=== PATIENT | female | born 1990 | race Caucasian/White ===

== ENCOUNTER 2018-04-28 20:44 | Observation (INO) | payer BC, SELFPAY ==
[2018-04-28 21:37] LABS: Absolute Lymphocytes (CBC) 2.5 K/uL (0.7-4.9); Absolute Monocytes 0.8 K/uL (0.1-1.3); Absolute Neutrophil 7.3 K/uL (1.8-8.0); Basophils % 0.5 % (0-1.3); Eosinophils % 0.4 % (0-4.4); Lymphocytes % 23.7 % (15.3-44.8); MPV 8.8 fL (7.6-11.3); Monocytes % 7.7 % (3.3-12.3); RBC Red Blood Cell Count 4.29 M/uL (3.86-4.86)
[2018-04-28 21:50] LABS: Urine Blood NEGATIVE (NEG); Urine Glucose NEGATIVE (NEG); Urine Protein NEGATIVE (NEG); Urine Specific Gravity 1.025 (1.005-1.030); Urine pH 5.5 (5.0-7.0)
[2018-04-28 21:53] LABS: ALT/SGPT 14 U/L (12-78); AST/SGOT 8 U/L (15-37); Albumin 3.7 g/dL (3.4-5.0); Alkaline Phosphatase 68 U/L (45-117); BUN Blood Urea Nitrogen 11 mg/dL (7-18); Bicarbonate 27 mmol/L (21-32); Bilirubin Direct < 0.1 mg/dL (0-0.2); Bilirubin Total 0.2 mg/dL (0.2-1.0); Glucose Level 117 mg/dL (74-106); Lipase 153 U/L (73-393); Potassium 3.2 mmol/L (3.5-5.1); Protein, Total 7.4 g/dL (6.4-8.2); Sodium Level 141 mmol/L (136-145)
[2018-04-28] MEDS ORDERED: NA CHLORIDE 0.9% 1,000 ML ONE (21:56)
[2018-04-28] MEDS ORDERED: ONDANSETRON 4 MG/2 ML VIAL ONE (21:56)
[2018-04-28 22:16] LABS: Blood Morphology Comment NOTED (NOT SEEN); Platelet Estimate ADEQ; Urine White Blood Cell Casts OK
[2018-04-28 22:51] LABS: Urine Bacteria 20-50 /HPF (<20); Urine Culture Reflex Order REFLEXED; Urine Mucus 3+ /HPF (NONE SEEN); Urine RBC <5 /HPF (NONE SEEN)
--- NOTE | 2018-04-29 00:45 | ER ---
Nurse's Notes [facility] Name: Agnes Sweeney Age: 28 yrs Sex: Female : 1990 Arrival Date: 04/28/2018 Time: 20:46 Bed 8 Private MD: Diagnosis: Acute appendicitis Presentation: 04/28 20:48 Presenting complaint: Patient states: I am having severe abdominal pain on my right ed1 side. Transition of care: patient was not received from another setting of care. Onset of symptoms was April 25, 2018. Risk Assessment: Do you want to hurt yourself or someone else? Patient reports no desire to harm self or others. Initial Sepsis Screen: Does the patient meet any 2 criteria? No. Patient's initial sepsis screen is negative. Does the patient have a suspected source of infection? No. Patient's initial sepsis screen is negative. Care prior to arrival: None. 20:48 Method Of Arrival: Ambulatory ed1 20:48 Acuity: SRI 3 ed1 Triage Assessment: 20:51 General: Appears uncomfortable, Behavior is calm, cooperative. Pain: Complains of pain ed1 in right lower quadrant Pain does not radiate. Pain currently is 6 out of 10 on a pain scale. Quality of pain is described as sharp, Is continuous. GI: Reports lower abdominal pain, nausea, Patient currently denies diarrhea, vomiting. : Reports burning with urination. 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 It has been more than one year since last vaccine. - Social history:: Smoking status: Patient/guardian denies using tobacco. - Ebola Screening: : Patient negative for fever greater than or equal to 101.5 degrees Fahrenheit, and additional compatible Ebola Virus Disease symptoms Patient denies exposure to infectious person Patient denies travel to an Ebola-affected area in the 21 days before illness onset No symptoms or risks identified at this time. Screenin:04 Abuse screen: Denies threats or abuse. Nutritional screening: No deficits noted. tl2 Tuberculosis screening: No symptoms or risk factors identified. Fall Risk None identified. Assessment: 21:50 General: Appears in no apparent distress. uncomfortable, Behavior is cooperative, tl2 appropriate for age, anxious. Pain: Complains of pain in right lower quadrant. Neuro: Level of Consciousness is awake, alert, obeys commands, Oriented to person, place, time, situation. Cardiovascular: Denies chest pain. Respiratory: Airway is patent Respiratory effort is even, unlabored, Respiratory pattern is regular, symmetrical. GI: Bowel sounds present X 4 quads. Abd is soft Abdomen is tender to palpation in left upper quadrant. : No signs and/or symptoms were reported regarding the genitourinary system. Derm: Skin is pale. 23:04 Reassessment: Patient appears in no apparent distress at this time. Patient and/or tl2 family updated on plan of care and expected duration. Pain level reassessed. Patient is alert, oriented x 3, equal unlabored respirations, skin warm/dry/pink. Patient states feeling better. 04/29 00:03 Reassessment: Patient appears in no apparent distress at this time. pt back from CT, tl2 ambulatory to restroom. Awaiting results. 01:00 Reassessment: Patient appears in no apparent distress at this time. Patient and/or tl2 family updated on plan of care and expected duration. Pain level reassessed. Patient is alert, oriented x 3, equal unlabored respirations, skin warm/dry/pink. 02:00 Reassessment: Patient appears in no apparent distress at this time. Patient and/or tl2 family updated on plan of care and expected duration. Pain level reassessed. Patient is alert, oriented x 3, equal unlabored respirations, skin warm/dry/pink. Patient states feeling better. 03:00 Reassessment: Patient appears in no apparent distress at this time. Patient and/or tl2 family updated on plan of care and expected duration. Pain level reassessed. Patient is alert, oriented x 3, equal unlabored respirations, skin warm/dry/pink. Vital Signs: 04/28 20:51 BP 133 / 74; Pulse 88; Resp 20; Temp 99.3(O); Pulse Ox 100% on R/A; Weight 104.33 kg ed1 (R); Height 5 ft. 4 in. (162.56 cm); Pain 6/10; 22:04 BP 102 / 60; Pulse 65; Resp 18; Pulse Ox 100% on R/A; tl2 23:04 BP 111 / 53; Pulse 79; Resp 18; Pulse Ox 99% on R/A; tl2 04/29 01:52 BP 121 / 82; Pulse 63; Resp 18; Pulse Ox 98% on R/A; mt 02:34 BP 112 / 65; Pulse 63; Resp 18; Pulse Ox 99% on R/A; tl2 04/28 20:51 Body Mass Index 39.48 (104.33 kg, 162.56 cm) ed1 ED Course: 04/28 20:46 Patient arrived in ED. as 20:49 Triage completed. ed1 20:51 Arm band placed on right wrist. ed1 20:53 Abel Pope PA is PHCP. cp 20:53 Calvin Mahmood MD is Attending Physician. cp 21:16 Kayleigh Maldonado, DEBRA is Primary Nurse. tl2 21:17 Oral contrast given. vm2 21:29 Inserted saline lock: 20 gauge in right antecubital area, using aseptic technique. mt 21:59 IV discontinued, intact, bleeding controlled, No redness/swelling at site. Pressure mt dressing applied. Inserted saline lock: 22 gauge in right antecubital area, using aseptic technique. 22:05 Patient has correct armband on for positive identification. Bed in low position. Call tl2 light in reach. Side rails up X 1. Adult w/ patient. 23:[address] via wheelchair. kw1 23:48 CT completed. Patient tolerated procedure well. Patient moved back from CT. kw1 04/29 00:44 Angel Martinez MD is Hospitalizing Provider. cp 03:00 No provider procedures requiring assistance completed. tl2 03:12 Patient admitted, IV remains in place. tl2 Administered Medications: 04/28 22:03 Drug: Zofran 4 mg Route: IVP; Site: right antecubital; tl2 22:03 Drug: NS 0.9% 1000 ml Route: IV; Rate: 1 bolus; Site: right antecubital; tl2 04/29 01:44 Drug: Mefoxin 1 grams Route: IVPB; Infused Over: 30 mins; Site: right antecubital; tl2 02:40 Follow up: IV Status: Completed infusion tl2 01:45 Drug: Flagyl 500 mg Volume: 100 ml; Route: IVPB; Rate: 200 ml/hr; Infused Over: 30 tl2 mins; Site: right antecubital; 02:40 Follow up: IV Status: Completed infusion; IV Intake: 100ml tl2 01:45 Drug: NS 0.9% 1000 ml Route: IV; Rate: 125 ml/hr; Site: right antecubital; tl2 03:13 Follow up: IV Status: Infusion continued upon admission tl2 01:45 Drug: morphine 4 mg Route: IVP; Site: right antecubital; tl2 02:40 Follow up: Response: No adverse reaction; Pain is decreased tl2 01:46 Drug: Zofran 4 mg Route: IVP; Site: right antecubital; tl2 02:40 Follow up: Response: No adverse reaction; Pain is decreased tl2 02:39 Drug: Potassium Chloride 20 mEq Route: IV; Rate: calculated rate; Site: right tl2 antecubital; 03:12 Follow up: IV Status: Infusion continued upon admission tl2 Intake: 02:40 IV: 100ml; Total: 100ml. tl2 Outcome: 00:44 Decision to Hospitalize by Provider. cp 03:00 Admitted to Med/surg accompanied by tech, family with patient, via wheelchair, room tl2 224, with chart, Report called to DEBRA Carroll 03:00 Condition: stable 03:00 Discharge instructions given to patient, family, Instructed on the need for admit. 03:13 Patient left the ED. tl2 Signatures: Bella Luna Erika RN RN ed1 Abel Pope PA PA cp Knox, Taylor, RN RN tl2 Katie Tovar 2 Sendy Henry mt, Kimberly kw
--- NOTE | 2018-04-29 00:45 | EDPHYS ---
Physician Documentation [facility] Name: Agnes Sweeney Age: 28 yrs Sex: Female : 1990 Arrival Date: 04/28/2018 Time: 20:46 Bed 8 Private MD: ED Physician Calvin Mahmood HPI: 04/28 21:10 This 28 yrs old Female presents to ER via Ambulatory with complaints of cp Abdominal Pain. 21:10 The patient presents with abdominal pain right lower quadrant. Onset: The cp symptoms/episode began/occurred 3 day(s) ago. The symptoms do not radiate. Associated signs and symptoms: Pertinent positives: diarrhea, nausea, Pertinent negatives: blood in stools, constipation, fever, vomiting. The symptoms are described as constant. Modifying factors: the symptoms are aggravated by movement. Severity of pain: in the emergency department the pain is actually worse moderately. 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 It has been more than one year since last vaccine. - Social history:: Smoking status: Patient/guardian denies using tobacco. - Ebola Screening: : Patient negative for fever greater than or equal to 101.5 degrees Fahrenheit, and additional compatible Ebola Virus Disease symptoms Patient denies exposure to infectious person Patient denies travel to an Ebola-affected area in the 21 days before illness onset No symptoms or risks identified at this time. ROS: 21:15 Constitutional: Negative for body aches, chills, fever, poor PO intake. cp 21:15 Eyes: Negative for injury, pain, redness, and discharge. cp 21:15 ENT: Negative for drainage from ear(s), ear pain, sore throat, difficulty swallowing, difficulty handling secretions. 21:15 Cardiovascular: Negative for chest pain. 21:15 Respiratory: Negative for cough, shortness of breath, wheezing. 21:15 Abdomen/GI: Positive for abdominal pain, nausea, diarrhea, Negative for vomiting, constipation, black/tarry stool, rectal bleeding. 21:15 Back: Negative for radiated pain. 21:15 : Negative for urinary symptoms, vaginal bleeding, vaginal discharge. 21:15 Skin: Negative for cellulitis, rash. 21:15 All other systems are negative. Exam: 21:20 Constitutional: The patient appears in no acute distress, alert, awake, non-toxic, well cp developed, well nourished, uncomfortable. 21:20 Head/Face: Normocephalic, atraumatic. cp 21:20 Eyes: Periorbital structures: appear normal, Conjunctiva: normal, no exudate, no cp injection, Sclera: no appreciated abnormality, Lids and lashes: appear normal, bilaterally. 21:20 ENT: External ear(s): are unremarkable, Nose: is normal, Mouth: Lips: moist, Oral cp mucosa: moist, Posterior pharynx: is normal, airway is patent, no erythema, no exudate. 21:20 Neck: ROM/movement: is normal, is supple, without pain, no range of motions limitations. 21:20 Chest/axilla: Inspection: normal, Palpation: is normal, no crepitus, no tenderness. 21:20 Cardiovascular: Rate: normal, Rhythm: regular. 21:20 Respiratory: the patient does not display signs of respiratory distress, Respirations: normal, no use of accessory muscles, no retractions, no splinting, no tachypnea, Breath sounds: are clear throughout, no decreased breath sounds, no stridor, no wheezing. 21:20 Abdomen/GI: Inspection: abdomen appears normal, Bowel sounds: active, all quadrants, Palpation: soft, in all quadrants, moderate abdominal tenderness, in the right lower quadrant, rebound tenderness, is not appreciated, voluntary guarding, is elicited in the right lower quadrant. 21:20 Back: pain, is absent, ROM is normal. 21:20 Skin: cellulitis, is not appreciated, no rash present. Vital Signs: 20:51 BP 133 / 74; Pulse 88; Resp 20; Temp 99.3(O); Pulse Ox 100% on R/A; Weight 104.33 kg ed1 (R); Height 5 ft. 4 in. (162.56 cm); Pain 6/10; 22:04 BP 102 / 60; Pulse 65; Resp 18; Pulse Ox 100% on R/A; tl2 23:04 BP 111 / 53; Pulse 79; Resp 18; Pulse Ox 99% on R/A; tl2 04/29 01:52 BP 121 / 82; Pulse 63; Resp 18; Pulse Ox 98% on R/A; mt 02:34 BP 112 / 65; Pulse 63; Resp 18; Pulse Ox 99% on R/A; tl2 04/28 20:51 Body Mass Index 39.48 (104.33 kg, 162.56 cm) ed1 MDM: 04/28 20:53 Patient medically screened. cp 21:30 Differential diagnosis: appendicitis, cholecystitis, Cholelithiasis, Ectopic , cp Ovarian Torsion, Pelvic Inflammatory Disease, Pyelonephritis, Ureterolithiasis, urinary tract infection. 04/29 00:40 Data reviewed: vital signs, nurses notes, lab test result(s), radiologic studies, CT cp scan, and as a result, I will admit patient. 00:40 Counseling: I had a detailed discussion with the patient and/or guardian regarding: the cp historical points, exam findings, and any diagnostic results supporting the discharge/admit diagnosis, radiology results, the need for further work-up and treatment in the hospital. 00:43 Physician consultation: Angel Martinez MD was called at 00:43, was contacted at 00:43, regarding admission, to the medical/surgical unit. patient's condition. 04/28 20:54 Order name: Urine Microscopic Only 04/28 21:02 Order name: Urine Dipstick--Ancillary (enter results) mw2 04/28 21:12 Order name: Basic Metabolic Panel cp 04/28 21:12 Order name: CBC with Diff cp 04/28 21:12 Order name: Creatinine for Radiology 04/28 21:12 Order name: Hepatic Function 04/28 21:12 Order name: Lipase cp 04/28 21:38 Order name: CBC with Automated Diff; Complete Time: 00:24 EDDC 04/28 21:57 Interpretation: Normal except: HGB 9.7; HCT 30.0; MCV 69.9; MCH 22.6; RDW 16.7. cp 04/28 21:50 Order name: Creatinine (Radiology Only); Complete Time: 21:57 EDMS 04/28 21:51 Order name: Urine Dipstick-Ancillary EDMS 04/28 21:57 Interpretation: Normal except: UESTR TRACE. cp 04/28 21:53 Order name: Basic Metabolic Panel; Complete Time: 21:57 EDMS 04/28 21:58 Interpretation: Normal except: K 3.2; CL 108; GLUC 117; CA 8.2. cp 04/28 21:53 Order name: Liver (Hepatic) Function; Complete Time: 21:57 EDMS 04/28 21:53 Order name: Lipase; Complete Time: 21:57 EDMS 04/28 22:16 Order name: CBC Smear Scan; Complete Time: 00:24 EDMS 04/28 20:54 Order name: Urine Dipstick-Ancillary (obtain specimen); Complete Time: 21:01 cp 04/28 20:54 Order name: Urine Test (obtain specimen); Complete Time: 20:57 cp 04/28 21:12 Order name: IV Saline Lock; Complete Time: 21:28 cp 04/28 21:12 Order name: Labs collected and sent; Complete Time: 21:28 cp 04/28 21:13 Order name: CT Abd/Pelvis - W/Contrast cp 04/28 22:52 Order name: Urine Microscopic Only; Complete Time: 00:24 EDMS 04/29 00:25 Order name: NPO; Complete Time: 00:27 cp Administered Medications: 04/28 22:03 Drug: Zofran 4 mg Route: IVP; Site: right antecubital; tl2 22:03 Drug: NS 0.9% 1000 ml Route: IV; Rate: 1 bolus; Site: right antecubital; tl2 04/29 01:44 Drug: Mefoxin 1 grams Route: IVPB; Infused Over: 30 mins; Site: right antecubital; tl2 02:40 Follow up: IV Status: Completed infusion tl2 01:45 Drug: Flagyl 500 mg Volume: 100 ml; Route: IVPB; Rate: 200 ml/hr; Infused Over: 30 tl2 mins; Site: right antecubital; 02:40 Follow up: IV Status: Completed infusion; IV Intake: 100ml tl2 01:45 Drug: NS 0.9% 1000 ml Route: IV; Rate: 125 ml/hr; Site: right antecubital; tl2 03:13 Follow up: IV Status: Infusion continued upon admission tl2 01:45 Drug: morphine 4 mg Route: IVP; Site: right antecubital; tl2 02:40 Follow up: Response: No adverse reaction; Pain is decreased tl2 01:46 Drug: Zofran 4 mg Route: IVP; Site: right antecubital; tl2 02:40 Follow up: Response: No adverse reaction; Pain is decreased tl2 02:39 Drug: Potassium Chloride 20 mEq Route: IV; Rate: calculated rate; Site: right tl2 antecubital; 03:12 Follow up: IV Status: Infusion continued upon admission tl2 Disposition: 03:46 Co-signature as Attending Physician, Calvin Mahmood MD. Disposition: 04/29/18 00:44 Hospitalization ordered by Angel Martinez for Observation. Preliminary diagnosis is Acute appendicitis. - Bed requested for Telemetry/MedSurg (observation). - Status is Observation. tl2 - Condition is Stable. - Problem is new. - Symptoms have improved. UTI on Admission? No Signatures: Dispatcher [employer] EDMS Rupal Mccord RN RN Grecia Vergara RN RN ed1 Abel Pope PA PA cp Knox, Taylor, RN RN tl2 Calvin Mahmood MD MD Corrections: (The following items were deleted from the chart) 04/28 21:58 21:57 Normal except: K 3.2; CL 108; GLUC 117. cp cp 04/29 02:18 00:44 Hospitalization Ordered by Angel Martinez MD for Observation. Preliminary diagnosis kl is Acute appendicitis. Bed requested for Telemetry/MedSurg (observation). Status is Observation. Condition is Stable. Problem is new. Symptoms have improved. UTI on Admission? No. cp 03:13 02:18 04/29/2018 00:44 Hospitalization Ordered by Angel Martinez MD for Observation. tl2 Preliminary diagnosis is Acute appendicitis. Bed requested for Telemetry/MedSurg (observation). Status is Observation. Condition is Stable. Problem is new. Symptoms have improved. UTI on Admission? No. kl
[2018-04-29] MEDS ORDERED: METRONIDAZOLE 500mg IVPB 500 MG/100 ML BAG IV ONE (01:17)
[2018-04-29] MEDS ORDERED: CEFOXITIN/SWI 1gm 1 GM/10 ML SYR ONE (01:17)
[2018-04-29] MEDS ORDERED: KCL 20 MEQ/100 mL IVPB 20 MEQ/100 ML BAG IV ONE (01:17)
[2018-04-29] MEDS ORDERED: NA CHLORIDE 0.9% 1,000 ML ONE (01:17)
[2018-04-29] MEDS ORDERED: MORPHINE 4 MG/ML SYR ONE (01:17)
[2018-04-29] MEDS ORDERED: ONDANSETRON 4 MG/2 ML VIAL ONE (01:18)
[2018-04-29] MEDS ORDERED: MORPHINE 4 MG/ML SYR IV PRN (01:40)
[2018-04-29] MEDS ORDERED: ACETAMINOPHEN 500 MG TAB PO PRN (01:40)
[2018-04-29] MEDS ORDERED: ONDANSETRON 4 MG/2 ML VIAL IV PRN ×2 (01:40→11:21)
[2018-04-29] MEDS: D5 0.45 NS 1,000 ML IV SCH ×3 (02:00→17:25)
[2018-04-29 04:05] VITALS: BMI 39.3
[2018-04-29] MEDS ORDERED: CEFOXITIN SODIUM 1 GM/VIAL IVPB SCH (06:00)
[2018-04-29] MEDS: METRONIDAZOLE 500mg IVPB 500 MG/100 ML BAG IV SCH ×4 (06:00→23:26)
[2018-04-29] MEDS: CEFOXITIN/SWI 1gm 1 GM/10 ML SYR IV SCH ×4 (07:30→23:26)
[2018-04-29] MEDS ORDERED: Ringers Lactate 1,000 ML IV ONE (08:40)
--- NOTE | 2018-04-29 09:06 | PREOPCON ---
Date of Consultation: 04/29/2018 Reason: Abdominal pain. History Of Present Illness: The patient is a 28-year-old female, who came to the emergency room with right lower quadrant abdominal pain that started about 3 days ago associated with nausea, occasional vomiting, and diarrhea. No constipation. No blood in her stool. No dysuria or hematuria. No sore throat, runny nose, cough, headaches, or dizziness. Slight anorexia. No fever or chills. Review of Systems: Otherwise unremarkable. Past Medical History: Anxiety and depression. Past Surgical History: Gastric sleeve. Allergies: INCLUDE LATEX, IBUPROFEN, AND TRAMADOL. Social History: The patient does not smoke. Denies drinking. Physical Examination: Vital Signs: Stable. She is afebrile. General: She is awake, alert, and oriented x3. Head and Neck: Cranial nerves 2 through 12 are grossly within normal limits. No neck masses. No JV D. Throat clear. Neck is supple. Chest: Clear. Heart: S1, S2. Abdomen: Soft and nondistended. Positive bowel sounds. Positive right lower quadrant tenderness wi th rebound. No rigidity or guarding. Extremity: Adequately perfused. Nontender. Neuro: Nonfocal. Laboratory Data: White count is 10.8, H and H are 9.7 and 30, platelets are 292. Chemistry reviewed ; potassium is slightly low at 3.2. CT of the abdomen and pelvis reviewed, consistent with acute unc omplicated appendicitis. Assessment: Acute appendicitis. Plan: Admit n.p.o., IV fluid, IV antibiotic, to the OR for laparoscopic appendectomy, possible open. The patient understands the risks, benefits, and alternatives, and agrees to procedure. /MODL Voice ID: [id number] Report ID: [id number]
[2018-04-29] MEDS ORDERED: SUCCINYLCHOLINE 20 MG/ML (10 ML) IV ONE (09:10)
[2018-04-29] MEDS ORDERED: FENTANYL CITR 100 MCG/2 ML ONE (09:12)
[2018-04-29] MEDS ORDERED: PROPOFOL 200 MG/20 ML VIAL IV ONE (09:13)
[2018-04-29] MEDS ORDERED: ROCURONIUM 50 MG/5 ML VIAL IV ONE (09:13)
[2018-04-29] MEDS ORDERED: MIDAZOLAM HCL 2 MG/2 ML INJ ONE (09:13)
[2018-04-29] MEDS ORDERED: BUPIVACAINE 0.5% PF 10 ML VIAL ONE (09:15)
[2018-04-29] MEDS ORDERED: NEOSTIGMINE 1 MG/ML -10 ML VIAL ONE (10:16)
[2018-04-29] MEDS ORDERED: GLYCOPYRROLATE 0.2 MG/ML SYR ONE (10:16)
--- NOTE | 2018-04-29 10:17 | P.OP ---
Preoperative diagnosis: Acute Appendicitis Postoperative diagnosis: same Primary procedure: Lap Appy Anesthesia: gen Estimated blood loss: min Specimen: appy Findings: as above Complications: None Transferred to: Recovery Room Condition: Good
[2018-04-29] MEDS: MEPERIDINE HCL 25 MG/0.5 ML ONE ×4 (10:32→11:14)
[2018-04-29] MEDS ORDERED: KETOROLAC 30 MG/ML INJ ONE (11:05)
[2018-04-29] MEDS: HYDROMORPHONE HCL 1 MG/ML INJ IV PRN ×3 (12:08→22:21)
--- NOTE | 2018-04-29 13:05 | OP ---
Date of Procedure: 04/29/2018 Surgeon: Angel Martinez MD Preoperative Diagnosis: Acute appendicitis. Postoperative Diagnosis: Acute appendicitis. Procedure: Laparoscopic appendectomy. Estimated Blood Loss: Minimal. Specimen: Appendix. Findings: As above. Anesthesia: General. Complications: None. Disposition: The patient tolerated the procedure in stable condition and taken to the Recovery in go od general condition. Procedure In Detail: The patient was brought to the OR and placed in supine position. General anest hesia was begun. The patient was prepped and draped in usual sterile fashion. Marcaine 0.5% was inf iltrated locally. A 15-blade was used to make a 1 cm supraumbilical midline incision. Subcutaneous tissues were divided. The fascia was identified and divided. A #1 Vicryl stay suture was placed. P eritoneal cavity was entered with blunt dissection. A 12-mm trocar placed into the peritoneal cavity under direct vision. Pneumoperitoneum was established. Then, two 5-mm trocars placed, 1 in the sup rapubic region, 1 in the left lower quadrant. Laparoscopy revealed acute appendicitis, uncomplicated . Subsequently, base of the appendix and the cecum identified, mesoappendix identified, and both str uctures divided with the endovascular HERB and then bleeding noted from the appendiceal artery. Vascu lar clips used to control that. Appendix retrieved through the umbilicus via an EndoCatch bag. The right lower quadrant, pelvis, right pericolic gutter thoroughly irrigated. Effluent was clear. No e vidence of bowel injury or bleeding noted. Subsequently, all trocars were removed under direct visio n. Stay sutures were tied to each other to reapproximate the fascial defect. Subcutaneous wounds ir rigated. Bleeding controlled with cautery. A 3-0 chromic used to approximate the subcutaneous tissu e, and jeanie used to close the skin. Sterile dressing was applied. The patient was awakened and t aken to Recovery in good general condition. /MODL Voice ID: [id number] Report ID: [id number]
--- NOTE | 2018-04-29 13:05 | DS ---
LAY/NITISH Voice ID: [id number] Report ID: [id number] MTDClaudette
[2018-04-29] MEDS: HYDROCODONE/APAP 7.5/325 MG TAB PO PRN ×2 (17:22→22:29)
[2018-04-30 04:23] LABS: Absolute Lymphocytes (CBC) 2.7 K/uL (0.7-4.9); Absolute Monocytes 0.7 K/uL (0.1-1.3); Basophils % 0.6 % (0-1.3); Hematocrit 29.4 % (36.0-45.0); Lymphocytes % 31.9 % (15.3-44.8); Monocytes % 8.3 % (3.3-12.3)
[2018-04-30 05:04] LABS: BUN Blood Urea Nitrogen 7 mg/dL (7-18); Bicarbonate 25 mmol/L (21-32); Glucose Level 109 mg/dL (74-106); Phosphorus 3.2 mg/dL (2.5-4.9); Potassium 3.8 mmol/L (3.5-5.1); Sodium Level 141 mmol/L (136-145)
[2018-04-30] MEDS: D5 0.45 NS 1,000 ML IV SCH ×2 (05:23→10:00)
[2018-04-30] MEDS: CEFOXITIN/SWI 1gm 1 GM/10 ML SYR IV SCH (05:23)
[2018-04-30] MEDS: METRONIDAZOLE 500mg IVPB 500 MG/100 ML BAG IV SCH (05:23)
[2018-04-30] MEDS: HYDROCODONE/APAP 7.5/325 MG TAB PO PRN (08:18)
[2018-04-30 08:57] VITALS: BP 105/51; TEMP 98.2
[2018-04-30 09:18] VITALS: O2SAT 97
--- NOTE | 2018-05-01 04:14 | DS ---
Date of Discharge: 04/30/2018 Admitting Diagnosis: Acute appendicitis. Discharge Diagnosis: Acute appendicitis. Procedure Performed: Laparoscopic appendectomy. Hospital Course: The patient is a 28-year-old female who came with abdominal pain, workup revealed a cute appendicitis, underwent a laparoscopic appendectomy. Postoperatively, she is tolerating diet, a mbulating, pain controlled with p.o. pain medication, afebrile. White count is normal. H and H are stable. Therefore, the patient will be discharged to home. Disposition: Home. Condition: Stable. Discharge Instructions: Resume home medications and diet. Activity as tolerated. No heavy lifting. Remove outer dressing in a.m. Shower. Keep wound clean and dry. Follow up in my office in 1 week . Call for appointment. Tylenol No. 3 one tablet p.o. q.4 p.r.n. pain, Cipro 500 mg p.o. q.12, Flag yl 500 mg p.o. q.8. /MODL Voice ID: [id number] Report ID: [id number]
--- NOTE | 2018-05-01 09:50 | RAD REPORT ---
EXAM DESCRIPTION: CT Abdomen and Pelvis With Intravenous Contrast CLINICAL HISTORY: The patient is 28 years old and is Female; RLQ abdomen pain TECHNIQUE: Axial computed tomography images of the abdomen and pelvis with intravenous contrast. S agittal and coronal reformatted images were created and reviewed. This CT exam was performed using one or more of the following dose reduction techniques: automated exposure control, adjustment of t he mA and/or kV according to patient size, and/or use of iterative reconstruction technique. COMPARISON: None. FINDINGS: LUNG BASES: Lung bases are clear. ABDOMEN: LIVER: Hepatic steatosis. GALLBLADDER AND BILE DUCTS: Unremarkable. No calcified stones. No ductal dilation. PANCREAS: Unremarkable. No mass. No ductal dilation. SPLEEN: Unremarkable. No splenomegaly. ADRENALS: Unremarkable. No mass. KIDNEYS AND URETERS: Unremarkable. No solid mass. No hydronephrosis. STOMACH AND BOWEL: Prior gastric sleeve. Enteric contrast is seen throughout the distal small bowel and proximal large bowel. No mucosal thickening. PELVIS: APPENDIX: Diffuse thickening of the appendix measuring 1 cm with periappendiceal stranding and pro minent right lower quadrant lymph nodes. No perforation or fluid collection. BLADDER: Unremarkable. No mass. REPRODUCTIVE: Physiologic pelvic changes with small amount of endometrial fluid and left ovarian c ystic changes measuring 2.8 cm. ABDOMEN and PELVIS: INTRAPERITONEAL SPACE: Unremarkable. No free air. No significant fluid collection. BONES/JOINTS: No acute fracture. No dislocation. SOFT TISSUES: Small fat-containing periumbilical hernia. VASCULATURE: Unremarkable. No abdominal aortic aneurysm. LYMPH NODES: See above. IMPRESSION: 1. Acute uncomplicated appendicitis 2. Physiologic pelvic changes with 2.8 cm left ovarian cyst.. No follow-up imaging is recommended. Reference: US recommendations based on Radiology 2010 Nov;256(3):943-54; CT/MR recommendations based on J Am Krysten Radiol 2013;10:675-681. Electronically signed by: Marco Mejia DO 04/29/2018 12:15 AM [employer] ANIMAL DAMAGE CONTROL AGENT Due to temporary technical issues with the PACS/Fluency reporting system, reports are being signed by the in house radiologist as a courtesy to ensure prompt reporting. The interpreting radiologist is f justoly responsible for the content of the report. ADDENDUM #1 ADDENDUM: THIS REPORT CONTAINS FINDINGS THAT MAY BE CRITICAL TO PATIENT'S CARE: Notification that physician was unable to speak on the phone on 04/29/2018 12: 23 AM N[employer]ISANCE [employer]IMAL DAMAGE CONTROL AGENT. Findings wer e verbally discussed by Dr. Mejia via telephone with nurse Abel vera RN on 04/29/2018 12:23 AM NUISANCE ANIMAL DAMAGE CONTROL AGENT who agreed to take the results on behalf of the physician, and acknowledged their critical nature. Electronically signed by: Marco Mejia DO 04/29/2018 12:24 AM N[employer]ISANCE [employer]IMAL DAMAGE CONTROL AGENT End of Addendum Due to temporary technical issues with the PACS/Fluency reporting system, reports are being signed by the in house radiologist as a courtesy to ensure prompt reporting. The interpreting radiologist is f ully responsible for the content of the report.
== END 2018-04-30 11:00 | disposition home or self-care (01) ==
LOC: ER 20:44 → ERHOLD 04-29 01:54 → 2ND 04-29 02:39
PROVIDERS: ADMIT Surgery; ATTEND Surgery
PROC: 0DTJ4ZZ Resection of Appendix, Percutaneous Endoscopic Approach (ICD-10-PCS; principal; 2018-04-29 09:00)
DX: K35.80 Unspecified acute appendicitis (principal); Z91.040 Latex allergy status; Z98.84 Bariatric surgery status
CPT/HCPCS: 36415; 74177; 80048; 80076; 81003; 81015; 81025; 83690; 83735; 84100; 85025; 87086; 87088; 88304; 96365; 96367; 96375; 99285; G0378; J0330; J0694; J1170; J2175; J2250; J2405; J2704; J2710; J3010; J7030; Q9967

== ENCOUNTER 2019-05-12 12:40 | Emergency (ER) | payer BC, SELFPAY ==
[2019-05-12] MEDS ORDERED: HYDROCODONE/APAP 10/325 TAB ONE (13:03)
--- NOTE | 2019-05-12 13:38 | RAD REPORT ---
EXAM DESCRIPTION: RAD - Tib Fib Right - 05/12/2019 1:32 pm CLINICAL HISTORY: Right leg pain FINDINGS: No fracture is seen
--- NOTE | 2019-05-12 13:41 | ER ---
Nurse's Notes [facility] Name: Agnes Sweeney Age: 29 yrs Sex: Female : 1990 Arrival Date: 05/12/2019 Time: 12:43 Bed 6 Private MD: Diagnosis: Contusion of right lower leg;Abrasion, right ankle;Abrasion, right lower leg Presentation: 05/11 12:44 Chief complaint: Patient states: "I stepped into a manhole and hurt my right leg". Pt aa5 c/o pain to right lower leg. 12:44 Coronavirus screen: The patient has NOT traveled to a country currently being monitored aa5 by the [facility] within the last 14 days. Ebola Screen: Patient negative for fever greater than or equal to 101.5 degrees Fahrenheit, and additional compatible Ebola Virus Disease symptoms. Initial Sepsis Screen: Does the patient meet any 2 criteria? No. Patient's initial sepsis screen is negative. Does the patient have a suspected source of infection? No. Patient's initial sepsis screen is negative. Risk Assessment: Do you want to hurt yourself or someone else? Patient reports no desire to harm self or others. 12:44 Method Of Arrival: Wheelchair aa5 12:44 Acuity: SRI 4 aa5 Triage Assessment: 12:50 General: Appears in no apparent distress. comfortable, Behavior is cooperative, bp appropriate for age, anxious. Pain: Complains of pain in right leg. EENT: No deficits noted. Neuro: No deficits noted. Cardiovascular: No deficits noted. Respiratory: No deficits noted. GI: No signs and/or symptoms were reported involving the gastrointestinal system. : No signs and/or symptoms were reported regarding the genitourinary system. Derm: No deficits noted. Musculoskeletal: Circulation, motion, and sensation intact. Range of motion: intact in all extremities. Injury Description: Abrasion sustained to right leg. Historical: - Allergies: 12:50 Ibuprofen; aa5 12:50 Latex, Natural Rubber; aa5 12:50 Tramadol HCl; aa5 - PMHx: 12:50 Anxiety; Depression; aa5 - PSHx: 12:50 Gastric Sleeve; aa5 - Immunization history:: Last tetanus immunization: < 5 years ago. - Social history:: Smoking status: Patient denies any tobacco usage or history of. Screenin:50 Abuse screen: Denies threats or abuse. Denies injuries from another. Nutritional bp screening: No deficits noted. Tuberculosis screening: No symptoms or risk factors identified. Fall Risk None identified. Assessment: 12:50 General: SEE TRIAGE NOTE. bp 14:21 Reassessment: Patient appears in no apparent distress at this time. Patient and/or rb1 family updated on plan of care and expected duration. Pain level reassessed. Patient is alert, oriented x 3, equal unlabored respirations, skin warm/dry/pink. Vital Signs: 12:44 BP 141 / 90; Pulse 92; Resp 16 S; Temp 98.0(TE); Pulse Ox 98% on R/A; Weight 113.4 kg aa5 (R); Height 5 ft. 4 in. (162.56 cm) (R); Pain 4/10; 14:21 BP 132 / 97; Pulse 80; Resp 16; Pulse Ox 97% on R/A; rb1 12:44 Body Mass Index 42.91 (113.40 kg, 162.56 cm) aa5 ED Course: 12:43 Patient arrived in ED. ag5 12:44 Milan Veloz, DOROTHY is PHCP. pm1 12:44 Efren Hyatt MD is Attending Physician. pm1 12:44 Arm band placed on. aa5 12:46 Ector Smith, DEBRA is Primary Nurse. bp 12:50 Patient has correct armband on for positive identification. Bed in low position. Call bp light in reach. Side rails up X2. Adult w/ patient. 12:54 Triage completed. aa5 13:32 Tib Fib Right XRAY In Process Unspecified. EDMS 14:02 No provider procedures requiring assistance completed. Patient did not have IV access bp during this emergency room visit. Wound care: to abrasion, located on right leg was cleaned with Hibiclens, dressed with Neosporin. Administered Medications: 13:10 Drug: [place] 10 mg-325 mg 1 tabs Route: PO; bp 14:11 Follow up: Response: Pain is decreased bp Outcome: 13:40 Discharge ordered by MD. pm1 14:21 Discharged to home ambulatory, with family. rb1 14:21 Condition: stable 14:21 Discharge instructions given to patient, Instructed on discharge instructions, follow up and referral plans. medication usage, Demonstrated understanding of instructions, follow-up care, medications, Prescriptions given X 1. 14:22 Patient left the ED. rb1 Signatures: Dispatcher [employer] EDMS Lesvia Mcdermott RN RN aa5 Loretta Bowers RN RN rb1 Milan Veloz, COLD HEADER COLD HEADER pm1 Ector Smith RN RN bp Clint Barclay 5
--- NOTE | 2019-05-12 13:42 | EDPHYS ---
Physician Documentation [facility] Name: Agnes Sweeney Age: 29 yrs Sex: Female : 1990 Arrival Date: 05/12/2019 Time: 12:43 Bed 6 Private MD: ED Physician Efren Hyatt HPI: 05/11 12:51 This 29 yrs old Female presents to ER via Unassigned with complaints of Right pm1 Leg Injury. 12:51 The patient presents with an abrasion, pain, that is acute. The complaints affect the pm1 right braga. Context: The problem was sustained outdoors, resulted from Stepping into a hole while walking, must have assistance, Problem is a result from a previous injury: No. Onset: The symptoms/episode began/occurred just prior to arrival. Modifying factors: The symptoms are alleviated by elevating leg, the symptoms are aggravated by weight bearing. Associated signs and symptoms: Pertinent negatives calf tenderness, fever, numbness, tingling. Treatment prior to arrival includes: no previous treatment. The patient has not experienced similar symptoms in the past. Patient was walking and stepped into a water meter hole that was not covered. Pain to right braga area with applying pressure. Abrasions to right ankle and right braga. Historical: - Allergies: 12:50 Ibuprofen; aa5 12:50 Latex, Natural Rubber; aa5 12:50 Tramadol HCl; aa5 - PMHx: 12:50 Anxiety; Depression; aa5 - PSHx: 12:50 Gastric Sleeve; aa5 - Immunization history:: Last tetanus immunization: < 5 years ago. - Social history:: Smoking status: Patient denies any tobacco usage or history of. ROS: 12:51 Constitutional: Negative for fever, chills, and weight loss, Neck: Negative for injury, pm1 pain, and swelling, Cardiovascular: Negative for chest pain, palpitations, and edema, Respiratory: Negative for shortness of breath, cough, wheezing, and pleuritic chest pain, Back: Negative for injury and pain. 12:51 Neuro: Negative for headache, weakness, numbness, tingling, and seizure. 12:51 MS/extremity: Positive for pain, of the right braga, Negative for decreased range of motion, deformity, paresthesias, tingling. 12:51 Skin: Positive for abrasion(s), of the right ankle and right braga. 12:51 All other systems are negative. Exam: 12:51 Constitutional: This is a well developed, well nourished patient who is awake, alert, pm1 and in no acute distress. Head/Face: Normocephalic, atraumatic. Neck: Trachea midline, no thyromegaly or masses palpated, and no cervical lymphadenopathy. Supple, full range of motion without nuchal rigidity, or vertebral point tenderness. No Meningismus. Chest/axilla: Normal chest wall appearance and motion. Nontender with no deformity. No lesions are appreciated. Cardiovascular: Regular rate and rhythm with a normal S1 and S2. No gallops, murmurs, or rubs. Normal PMI, no JVD. No pulse deficits. Respiratory: Lungs have equal breath sounds bilaterally, clear to auscultation and percussion. No rales, rhonchi or wheezes noted. No increased work of breathing, no retractions or nasal flaring. Back: No spinal tenderness. No costovertebral tenderness. Full range of motion. 12:51 Musculoskeletal/extremity: Extremities: grossly normal except: noted in the right braga: pain, tenderness. 12:51 Skin: Appearance: normal except for affected area, injury, abrasion(s), small abrasion noted, of the right ankle and right braga. Vital Signs: 12:44 BP 141 / 90; Pulse 92; Resp 16 S; Temp 98.0(TE); Pulse Ox 98% on R/A; Weight 113.4 kg aa5 (R); Height 5 ft. 4 in. (162.56 cm) (R); Pain 4/10; 14:21 BP 132 / 97; Pulse 80; Resp 16; Pulse Ox 97% on R/A; rb1 12:44 Body Mass Index 42.91 (113.40 kg, 162.56 cm) aa5 MDM: 12:45 Patient medically screened. pm1 12:56 Data reviewed: vital signs. Data interpreted: Pulse oximetry: on room air is 98 %. pm1 Interpretation: normal. 12:56 ED course: Tetanus up to date. Has 7 month old child that she had the Tdap . pm1 13:38 Counseling: I had a detailed discussion with the patient and/or guardian regarding: the pm1 historical points, exam findings, and any diagnostic results supporting the discharge/admit diagnosis, radiology results, the need for outpatient follow up, to return to the emergency department if symptoms worsen or persist or if there are any questions or concerns that arise at home. 13:49 ED course: [employer] aware reviewed. Patient last prescription in 10/02/2018 for lorazepam 1 pm1 mg 30-pills. 05/11 12:51 Order name: Tib Fib Right XRAY; Complete Time: 13:47 pm1 05/11 12:51 Order name: Wound Care; Complete Time: 14:01 pm1 Administered Medications: 13:10 Drug: [place] 10 mg-325 mg 1 tabs Route: PO; bp 14:11 Follow up: Response: Pain is decreased bp Disposition: 17:00 Co-signature as Attending Physician, Efren Hyatt MD. rn Disposition: 05/12/19 13:40 Discharged to Home. Impression: Contusion of right lower leg, Abrasion, right ankle, Abrasion, right lower leg. - Condition is Stable. - Discharge Instructions: Abrasion, Contusion, Crutch Use. - Prescriptions for Tylenol- Codeine #3 300-30 mg Oral Tablet - take 2 tablets by ORAL route every 6 hours As needed; 20 tablet. - Medication Reconciliation Form, Thank You Letter, Antibiotic Education, Prescription Opioid Use form. - Follow up: Emergency Department; When: As needed; Reason: Worsening of condition. Follow up: Private Physician; When: 2 - 3 days; Reason: Recheck today's complaints, Continuance of care, Re-evaluation by your physician. - Problem is new. - Symptoms have improved. Signatures: Dispatcher [employer] EDMS Efren Hyatt MD MD rn Calderon, Audri, RN RN aa5 Loretta Bowers, RN RN rb1 Milan Veloz, DOROTHY [employer] KITCHEN [employer]OOK pm1 Ector Smith RN RN bp Corrections: (The following items were deleted from the chart) 14:22 13:40 05/12/2019 13:40 Discharged to Home. Impression: Contusion of right lower leg; rb1 Abrasion, right ankle; Abrasion, right lower leg. Condition is Stable. Forms are Medication Reconciliation Form, Thank You Letter, Antibiotic Education, Prescription Opioid Use. Follow up: Emergency Department; When: As needed; Reason: Worsening of condition. Follow up: Private Physician; When: 2 - 3 days; Reason: Recheck today's complaints, Continuance of care, Re-evaluation by your physician. Problem is new. Symptoms have improved. pm1
[2019-05-12 14:28] VITALS: TEMP 98
[2019-05-12 14:29] VITALS: BP 132/97; O2SAT 97
== END 2019-05-12 14:22 | disposition home or self-care (01) ==
LOC: ER 12:40
DX: S90.511A Abrasion, right ankle, initial encounter (principal); S80.811A Abrasion, right lower leg, initial encounter; X58.XXXA Exposure to other specified factors, initial encounter; Y93.01 Activity, walking, marching and hiking; Y92.89 Other specified places as the place of occurrence of the external cause; Z88.6 Allergy status to analgesic agent; Z91.040 Latex allergy status; Z91.048 Other nonmedicinal substance allergy status
CPT/HCPCS: 99284